=== PATIENT | female | born 1970 | race African-American/Black ===

== ENCOUNTER 2019-11-22 02:28 | Emergency (ER) | payer OTHER, MEDICAID ==
[~2019-11-22] VITALS: Ht 165.1 cm; Wt 91.0 kg
[2019-11-22 02:36] VITALS: BP 139/93
[2019-11-22] MEDS ORDERED: LIDOCAINE HCL/PF 1% 10 MG/ML 5ML VIAL IJ ONE (03:30)
[2019-11-22] MEDS ORDERED: BACITRACIN ZINC OINT UDPKT TOP ONE (03:30)
[2019-11-22] MEDS ORDERED: CEPHALEXIN 250MG CAPSULE PO ONE (03:30)
[2019-11-22] MEDS ORDERED: TETANUS, DIPHTHERIA, PERTUSSIS VAC/PF 0.5ML (>7YR OLD) IM ONE (03:30)
[2019-11-22] MEDS ORDERED: LIDOCAINE 1%/EPI 1:100,000 10 ML VIAL IJ ONE (03:30)
[2019-11-22] MEDS ORDERED: IBUPROFEN 600MG TABLET PO ONE (03:30)
== END 2019-11-22 05:03 | disposition home or self-care (01) ==
LOC: ER 02:28
DX: S81.811A Laceration without foreign body, right lower leg, initial encounter (principal); S61.216A Laceration without foreign body of right little finger without damage to nail, initial encounter; S61.402A Unspecified open wound of left hand, initial encounter; F41.9 Anxiety disorder, unspecified; J45.909 Unspecified asthma, uncomplicated; F20.9 Schizophrenia, unspecified; X99.0XXA Assault by sharp glass, initial encounter; Y93.89 Activity, other specified; Y92.9 Unspecified place or not applicable
CPT/HCPCS: 12002; 90471; 90715; 99284; J3490